=== PATIENT | male | born 1945 | race African-American/Black ===

== ENCOUNTER 2023-06-01 08:40 | Emergency (ER) | payer OTHER ==
[2023-06-01 09:46] LABS: #Lymphocytes 1.2 thou/uL (1.20-3.40); #Monocytes 0.3 thou/uL (0.11-0.59); #Neutrophils 2.2 thou/uL (1.40-6.50); %Basophils 0.7 % (0.0-1.0); %Eosinophils 1.1 % (0.0-10.0); %Lymphocytes 31.6 % (21.0-51.0); %Monocytes 8.8 % (0.0-10.0); %Neutrophils 57.7 % (42.0-75.0); Hematocrit 32.9 % (42.0-52.0); Hemoglobin 11.1 g/dL (14.0-18.0); Mean Corpuscular HGB CONC 33.7 g/dL (32.0-36.0); Mean Corpuscular Hemoglobin 28.5 pg (27.0-31.0); Mean Corpuscular Volume 84.7 fl (78.0-98.0); Mean Platelet Volume 5.9 fL (7.4-10.4); Platelet Count 179 10x3/uL (130-400); RBC Distribution Width 12.2 % (11.5-14.5); Red Blood Cell (RBC) Count 3.88 mill/uL (4.70-6.10); White Blood Cell (WBC) Count 3.8 10x3/uL (4.8-10.8)
[2023-06-01 09:50] LABS: INR-International Normal Ratio 1.4; Prothrombin Time 18.2 sec (12.0-14.7)
[2023-06-01 09:58] LABS: ALT (SGPT) 9 U/L (8-55); AST (SGOT) 15 U/L (5-34); Albumin 3.4 g/dL (3.4-4.8); Alkaline Phosphatase 61 U/L (40-110); Anion Gap 12 mmol/L (10-20); BUN (Urea Nitrogen) 11 mg/dL (8.4-25.7); Bilirubin, Total 0.6 mg/dL (0.2-1.2); Calc. Creatinine Clearance 0 mL/min (70-130); Calcium 8.5 mg/dL (7.8-10.44); Carbon Dioxide 27 mmol/L (23-31); Chloride 107 mmol/L (98-107); Estimated GFR 71; Globulin 3.6 g/dL (2.4-3.5); Glucose 110 mg/dL (83-110); Potassium 3.5 mmol/L (3.5-5.1); Sodium 142 mmol/L (136-145)
== END 2023-06-01 10:15 | disposition short-term general hospital (02) ==
LOC: BURERS 08:40
DX: R22.41 Localized swelling, mass and lump, right lower limb (principal); I10 Essential (primary) hypertension; Z79.01 Long term (current) use of anticoagulants
CPT/HCPCS: 36415; 80053; 85025; 85379; 85610; 99284